=== PATIENT | male | born 1985 | race Caucasian/White ===

== ENCOUNTER 2017-05-25 09:48 | Emergency (ER) | payer OTHER ==
[2017-05-25 10:03] VITALS: BMI 29.6
[2017-05-25] MEDS ORDERED: SODIUM CHLORIDE 1,000 ML IV STA (10:09)
--- NOTE | 2017-05-25 10:12 | PDOC ---
History of Present Illness - General History Source: Patient Exam Limitations: No Limitations - History of Present Illness Initial Comments: 05/25/17 10:16 The patient is a 31 year old male with history of schizophrenia and bipolar disorder who arrives to the ED s/p syncopal episode while in his urologists office about 30 minutes prior to arrival. The patient states he was having a catheter placed and felt discomfort then lost consciousness. The patients mother states the patient was unconscious for a few minutes, but once he regained consciousness he had no post-ictal complaints. The patient is currently being seen by for his chronic left flank pain. The patient denies any recent illness, fever, chills, nausea, vomiting, diarrhea, chest pain, shortness of breath. Urologist: Lashell Cardona <Samara Birch - Last Filed: 05/25/17 10:25> - General History Source: Patient, Parent(s) Exam Limitations: No Limitations <Olivier Funez - Last Filed: 05/25/17 13:00> - General Chief Complaint: Syncope/Near Syncope Stated Complaint: Syncope/Near Syncope Time Seen by Provider: 05/25/17 09:54 Past History <Samara Birch - Last Filed: 05/25/17 10:25> - Psycho/Social/Smoking Cessation Hx Anxiety: No Suicidal Ideation: No Smoking History: Never smoked Have you smoked in the past 12 months: No Number of Cigarettes Smoked Daily: 1 Information on smoking cessation initiated: No Hx Alcohol Use: No Drug/Substance Use Hx: No Substance Use Type: None <Olivier Funez - Last Filed: 05/25/17 13:00> - Past Medical History Allergies/Adverse Reactions: Allergies Allergy/AdvReac Type Severity Reaction Status Date / Time No Known Allergies Allergy Verified 11/10/15 10:07 Home Medications: Ambulatory Orders NK [No Known Home Medication] 05/25/17 Review of Systems - Review of Systems Able to Perform ROS?: Yes Comments:: 05/25/17 10:17 GENERAL/CONSTITUTIONAL: No fever or chills. No weakness. HEAD, EYES, EARS, NOSE AND THROAT: No change in vision. No ear pain or discharge. No sore throat. CARDIOVASCULAR: No chest pain or shortness of breath. RESPIRATORY: No cough, wheezing, or hemoptysis. GASTROINTESTINAL: No nausea, vomiting, diarrhea or constipation. GENITOURINARY: Present: left flank pain No dysuria, frequency, or change in urination. MUSCULOSKELETAL: No joint or muscle swelling or pain. No neck or back pain. SKIN: No rash NEUROLOGIC: Present: syncope No headache, vertigo, or change in strength/sensation. ENDOCRINE: No increased thirst. No abnormal weight change. HEMATOLOGIC/LYMPHATIC: No anemia, easy bleeding, or history of blood clots. ALLERGIC/IMMUNOLOGIC: No hives or skin allergy. All Other Systems: Reviewed and Negative <Samara Birch - Last Filed: 05/25/17 10:25> *Physical Exam - Vital Signs Last Vital Signs Temp Pulse Resp BP Pulse Ox 98 F 57 L 18 119/78 100 05/25/17 10:01 05/25/17 10:05/25/17 10:05/25/17 10:01 05/25/17 10:01 - Physical Exam Comments: 05/25/17 10:24 GENERAL: Awake, alert, and fully oriented, in no acute distress HEAD: No signs of trauma EYES: PERRLA, EOMI, sclera anicteric, conjunctiva clear ENT: Auricles normal inspection, hearing grossly normal, nares patent, oropharynx clear without exudates. Moist mucosa NECK: Normal ROM, supple, no lymphadenopathy, JVD, or masses LUNGS: Breath sounds equal, clear to auscultation bilaterally. No wheezes, and no crackles HEART: Regular rate and rhythm, normal S1 and S2, no murmurs, rubs or gallops ABDOMEN: Left CVA and LLQ tenderness, Soft, normoactive bowel sounds. No guarding, no rebound. No masses EXTREMITIES: Normal range of motion, no edema. No clubbing or cyanosis. No cords, erythema, or tenderness NEUROLOGICAL: Cranial nerves II through XII grossly intact. Normal speech, normal gait SKIN: Warm, Dry, normal turgor, no rashes or lesions noted. <Samara Birch - Last Filed: 05/25/17 10:25> - Vital Signs Last Vital Signs Temp Pulse Resp BP Pulse Ox 98 F 57 L 18 119/78 100 05/25/17 10:01 05/25/17 10:05/25/17 10:05/25/17 10:01 05/25/17 10:01 <Olivier Funez - Last Filed: 05/25/17 13:00> Heart Score/ECG Review #1 ECG reviewed & interpreted by me at: 10:40 05/25/17 11:46 NSR 54, LVH, TWI III, no std/radha, normal axis, normal intervals, QTC 390 msec, no brugada, no HOCM, no WPW <Olivier Funez - Last Filed: 05/25/17 13:00> ED Treatment Course - LABORATORY CBC & Chemistry Diagram: 05/25/17 10:10 05/25/17 10:10 <Olivier Funez - Last Filed: 05/25/17 13:00> Medical Decision Making - Medical Decision Making 05/25/17 10:10 A portion of this note was documented by scribe services under my direction. I have reviewed the details of the note, within reason, and agree with the documentation with the following case summary and management plan written by me. Patient treated in the ED. Nursing notes are reviewed and incorporated into the medical decision-making. Vital signs reviewed. Peripheral IV access obtained by the nurse, laboratory studies are drawn and sent, reviewed and interpreted by myself. Vital Signs Temp Pulse Resp BP Pulse Ox 98 F 57 L 18 119/78 100 05/25/17 10:01 05/25/17 10:01 05/25/17 10:01 05/25/17 10:01 05/25/17 10:01 31-year-old male with past medical history of bipolar disorder and schizophrenia presents with syncope. The patient has chronic left flank pain and left lower quadrant pain for many years that is under outpatient evaluation. The patient is undergoing evaluation by Dr. Lashell Cardona. Stated at that time he was getting a Jimenez catheter insertion and he felt discomfort. Subsequently syncopized. Denies trauma. Patient was reportedly briefly unconscious but awoke spontaneously with no postictal confusion. Patient has no symptoms at this time other than his chronic left sided pain. Denies chest pain. I suspect the patient likely had a vasovagal syncope. We'll obtain an EKG, labs and give IV fluids. If the workup is unremarkable, patient to be discharged. The patient's abdominal discomfort that is chronic and be worked up as an outpatient. 05/25/17 12:43 CBC, BMP 05/25/17 10:10 05/25/17 10:10 CMP Sodium 138 mmol/L (136-145) 05/25/17 10:10 Potassium 4.3 mmol/L (3.5-5.1) 05/25/17 10:10 Chloride 103 mmol/L (98-107) 05/25/17 10:10 Carbon Dioxide 27 mmol/L (21-32) 05/25/17 10:10 Anion Gap 8 (8-16) 05/25/17 10:10 BUN 8 mg/dL (7-18) 05/25/17 10:10 Creatinine 0.8 mg/dL (0.7-1.3) 05/25/17 10:10 Creat Clearance w eGFR > 60 (>60) 05/25/17 10:10 Random Glucose 101 mg/dL (74-106) 05/25/17 10:10 Calcium 9.3 mg/dL (8.5-10.1) 05/25/17 10:10 Magnesium 2.1 mg/dL (1.8-2.4) 05/25/17 10:10 Total Bilirubin 1.1 mg/dL (0.2-1.0) H D 05/25/17 10:10 AST 18 U/L (15-37) D 05/25/17 10:10 ALT 36 U/L (12-78) 05/25/17 10:10 Alkaline Phosphatase 96 U/L (45-117) D 05/25/17 10:10 Creatine Kinase 64 IU/L (39-308) 05/25/17 10:10 Troponin I < 0.02 ng/ml (0.00-0.05) 05/25/17 10:10 Total Protein 6.9 g/dl (6.4-8.2) 05/25/17 10:10 Albumin 3.7 g/dl (3.4-5.0) 05/25/17 10:10 Urine Test Results Urine Color Red 05/25/17 10:10 Urine Appearance Cloudy 05/25/17 10:10 Urine pH 8.0 (5.0-8.0) D 05/25/17 10:10 Urine Protein Negative (NEGATIVE) 05/25/17 10:10 Urine Glucose (UA) Negative (NEGATIVE) 05/25/17 10:10 Urine Ketones Negative (NEGATIVE) 05/25/17 10:10 Urine Blood Negative (NEGATIVE) 05/25/17 10:10 Urine Nitrite Negative (NEGATIVE) 05/25/17 10:10 Urine Bilirubin Negative (NEGATIVE) 05/25/17 10:10 Ur Leukocyte Esterase Trace (NEGATIVE) 05/25/17 10:10 Urine RBC 2 /hpf (0-3) 05/25/17 10:10 Urine WBC 8 /hpf (3-5) 05/25/17 10:10 Ur Epithelial Cells Rare /hpf (FEW) 05/25/17 10:10 The patient was given IV fluids and reports feeling much better. The patient does have trace leukoesterase and 8 WBCs but the patient has no dysuria at this time. Patient reports that these symptoms are chronic and he has been on 3 separate antibiotics prior and does not want to be on antibiotics at this time. Given the circumstances, we'll hold off from antibiotics and allow the urine cultures to grow. We'll have the patient call back for the urine culture results. Patient has a follow-up with his urologist. We'll also give her referral to gastroenterology. Again, I suspect the patient likely has vasovagal syncope. Patient go home with his mother. I discussed the physical exam findings, ancillary test results and final diagnoses with the patient. I answered all of the patient's questions. The patient was satisfied with the care received and felt comfortable with the discharge plan and treatment plan. The patient will call their primary care physician within 24 hours to arrange follow-up and will return to the Emergency Department with any new, persistant or worsening symptoms. <Olivier Funez - Last Filed: 05/25/17 13:00> *DC/Admit/Observation/Transfer - Attestations Scribe Attestion: 05/25/17 10:26 Documentation prepared by Samara Birch, acting as medical record clerk for Olivier Funez MD. <Samara Birch - Last Filed: 05/25/17 10:25> - Discharge Dispostion Admit: No <Olivier Funez - Last Filed: 05/25/17 13:00> Diagnosis at time of Disposition: Vasovagal syncope - Discharge Dispostion Disposition: HOME Condition at time of disposition: Improved - Referrals Referrals: Jade Lake MD [Primary Care Provider] - Topher Bear MD [Staff Physician] - - Patient Instructions Printed Discharge Instructions: DI for Syncope in Adults (Fainting) Additional Instructions: Please drink plenty of fluids and rest. Please make an appointment with a isotope hydrologist and urologist. Call to schedule an appointment. This was likely vasovagal syncope.
[2017-05-25 10:48] LABS: BASOPHIL 0.3 % (0-2.0); EOSINOPHIL 1.8 % (0-4.5); MCH 28.4 pg (25.7-33.7); MCHC 33.7 g/dl (32.0-35.9); MEAN CELL VOLUME 84.2 fl (80-96); MEAN PLT VOLUME 10.1 fl (7.5-11.1); NEUTROPHILS 80.2 % (42.8-82.8); PLATELET COUNT 247 K/MM3 (134-434); RDW 14.7 % (11.9-15.9); WHITE BLOOD COUNT 13.4 K/mm3 (4.0-10.0)
[2017-05-25 11:18] LABS: ALBUMIN 3.7 g/dl (3.4-5.0); ANION GAP 8 (8-16); BILIRUBIN,TOTAL 1.1 mg/dL (0.2-1.0); CALCIUM 9.3 mg/dL (8.5-10.1); CO2 27 mmol/L (21-32); CREATININE 0.8 mg/dL (0.7-1.3); GLUCOSE,RANDOM 101 mg/dL (74-106); SGPT/ALT 36 U/L (12-78); TOT PROT 6.9 g/dl (6.4-8.2)
[2017-05-25 11:20] LABS: ALK PHOS 96 U/L (45-117); TROPONIN I < 0.02 ng/ml (0.00-0.05)
[2017-05-25 11:37] LABS: MAGNESIUM 2.1 mg/dL (1.8-2.4)
[2017-05-25 11:38] LABS: SGOT/AST 18 U/L (15-37)
[2017-05-25 11:50] LABS: URINE BILIRUBIN NEGATIVE (NEGATIVE); URINE BLOOD NEGATIVE (NEGATIVE); URINE GLUCOSE (UA) NEGATIVE (NEGATIVE); URINE KETONE NEGATIVE (NEGATIVE); URINE LEUK ESTERASE TRACE (NEGATIVE); URINE NITRITE NEGATIVE (NEGATIVE); URINE PROTEIN NEGATIVE (NEGATIVE); URINE UROBILINOGEN NEGATIVE mg/dL (0.2-1.0)
[2017-05-25 12:28] LABS: URINE RBC 2 /hpf (0-3); URINE WBC 8 /hpf (3-5)
--- NOTE | 2017-05-25 12:37 | EKG ---
Test Reason : Blood Pressure : / mmHG Vent. Rate : 054 BPM Atrial Rate : 054 BPM P-R Int : 122 ms QRS Dur : 090 ms QT Int : 412 ms P-R-T Axes : 017 020 018 degrees QTc Int : 390 ms SINUS BRADYCARDIA MINIMAL VOLTAGE CRITERIA FOR LVH, MAY BE NORMAL VARIANT BORDERLINE ECG BASELINE ARTIFACT WHEN COMPARED WITH ECG OF 14-MAY-2009 14:03, NO SIGNIFICANT CHANGE WAS FOUND CORELATE CLINICALLY. Confirmed by CHECO BARILLAS MD ([id number]) on 05/25/2017 12:37:14 PM Referred By: Confirmed By:CHECO BARILLAS MD
[2017-05-25 13:14] VITALS: BP 119/71; PULSE 81; TEMP 98
[2017-05-25 13:27] LABS: URINE APPEARANCE CLEAR; URINE COLOR YELLOW
== END 2017-05-25 13:14 | disposition home or self-care (01) ==
LOC: JER 09:48
PROC: 3E0337Z Introduction of Electrolytic and Water Balance Substance into Peripheral Vein, Percutaneous Approach (ICD-10-PCS; principal; 2017-05-25)
DX: R55 Syncope and collapse (principal); Y84.6 Urinary catheterization as the cause of abnormal reaction of the patient, or of later complication, without mention of misadventure at the time of the procedure; Y73.8 Miscellaneous gastroenterology and urology devices associated with adverse incidents, not elsewhere classified; F31.9 Bipolar disorder, unspecified; F20.9 Schizophrenia, unspecified
CPT/HCPCS: 36415; 80053; 81003; 81015; 82550; 83735; 84484; 85025; 87086; 93005; 93010; 96360; 99285-25

== ENCOUNTER 2018-07-26 15:31 | Emergency (ER) | payer OTHER ==
--- NOTE | 2018-07-26 15:46 | PDOC ---
Rapid Medical Evaluation Time Seen by Provider: 07/26/18 15:40 Medical Evaluation: Allergies Allergy/AdvReac Type Severity Reaction Status Date / Time No Known Allergies Allergy Verified 07/26/18 15:40 07/26/18 15:41 Pt presents to the ED for chest pain lasting one week. Also reports L arm pain and L leg pain. Nothing makes the pain better or worse, but he does report feeling more stressed than usual Pt requesting HIV testing at this time. Exam: RRR, CTAB Orders: Labs, EKG, CXR Pt to proceed to ED for further evaluation Discharge Disposition - Diagnosis Chest pain - Referrals - Patient Instructions - Post Discharge Activity
[2018-07-26 15:48] VITALS: BP 144/75; PULSE 65; TEMP 98; BMI 32.9
[2018-07-26 16:30] LABS: BASO % 0.3 % (0-2.0); HEMATOCRIT 47.5 % (35.4-49); HEMOGLOBIN 15.9 GM/dL (11.7-16.9); LYMPH % 18.1 % (8-40); MCH 28.6 pg (25.7-33.7); MCHC 33.4 g/dl (32.0-35.9); MEAN CELL VOLUME 85.8 fl (80-96); MEAN PLT VOLUME 10.3 fl (7.5-11.1); MONO % 7.4 % (3.8-10.2); NEUT % 72.2 % (42.8-82.8); PLATELET COUNT 294 K/MM3 (134-434); RBC 5.54 M/mm3 (4.00-5.60); RDW 13.4 % (11.9-15.9); WHITE BLOOD COUNT 11.2 K/mm3 (4.0-10.0)
--- NOTE | 2018-07-26 16:50 | PDOC ---
History of Present Illness - General Chief Complaint: Chest Pain Stated Complaint: PAIN LT ARM/LEG/CHEST PAIN Time Seen by Provider: 07/26/18 15:40 History Source: Patient - History of Present Illness Initial Comments: 07/26/18 16:42 Pt is a 32 yo m with PMH of bipolar presents to ED with complaints of L sided chest pain that radiates to the L shoulder, back and down the L arm x 1 week. Pt says the chest pain feels sharp, is intermittent. Pain in the arm feels like a tingling especially in the medial hand. He also has pain in his L leg that is intermittent x 1 week. Not associated with weakness. Pt says he has been "stressing a lot lately". He also complains of SOB which usually starts when he smokes which he did today, lightheadedness, occasional palpitations, and chronic L sided abdominal pain, and chills. He usually has L sided headache but is denying it at this time. He also denies n/v/d, fever, urinary frequency/ urgency/dysuria, cough, testicular pain, weakness. Grandmother had an IL in her 40's. No history of IL in parents/siblings. PCP: Dr. Funes PMH: bipolar PSH: none Meds: none Allergies: nkda Social: smokes 13 cigarettes/daily. Denies alcohol, marijuana, illicit drug use Past History - Past Medical History Allergies/Adverse Reactions: Allergies Allergy/AdvReac Type Severity Reaction Status Date / Time No Known Allergies Allergy Verified 07/26/18 15:40 Home Medications: Ambulatory Orders NK [No Known Home Medication] 05/25/17 COPD: No Psychiatric Problems: Yes (panic attacks, anxiety, schizophrenia,bipolar) - Suicide/Smoking/Psychosocial Hx Smoking History: Current every day smoker Have you smoked in the past 12 months: No Number of Cigarettes Smoked Daily: 13 Information on smoking cessation initiated: Yes 'Breaking Loose' booklet given: 07/26/18 Hx Alcohol Use: No Drug/Substance Use Hx: No Substance Use Type: None Review of Systems - Review of Systems Able to Perform ROS?: Yes Is the patient limited Ukrainian proficient: No Constitutional: Yes: Chills. No: Fever, Weakness HEENTM: No: Blurred Vision, Tearing, Recent change in vision, Ear Pain ( occasionally has blurry vision), Nose Congestion, Throat Pain Respiratory: Yes: Shortness of Breath. No: Cough, Wheezing, Hemoptysis Cardiac (ROS): Yes: See HPI, Chest Pain, Lightheadedness, Palpitations ( occasional palpitations). No: Irregular Heart Rate, Syncope ABD/GI: Yes: Abdominal cramping (L sided). No: Abdominal Distended, Blood Streaked Bowels, Constipated, Diarrhea, Nausea, Vomiting : No: Burning, Dysuria, Flank Pain, Hematuria, Incontinence, Pain, Urgency, Testicular Swelling, Testicular Pain Musculoskeletal: Yes: Back Pain (L upper back pain radiating from chest). No: Joint Pain, Joint Swelling, Muscle Pain, Muscle Weakness, Joint Stiffness Neurological: Yes: Numbness (Medial aspect of L hand), Tingling (L arm). No: Headache, Paresthesia, Tremors, Weakness, Dizziness Psychiatric: Yes: Anxiety, Other (No SI, HI or hallucinations). No: Depression *Physical Exam - Vital Signs Last Vital Signs Temp Pulse Resp BP Pulse Ox 98 F 65 18 144/75 99 07/26/18 15:40 07/26/18 15:40 07/26/18 15:40 07/26/18 15:40 07/26/18 15:40 - Physical Exam General Appearance: Yes: Nourished, Appropriately Dressed. No: Apparent Distress HEENT: positive: EOMI, LUCERO, Pharynx Normal, Hearing Grossly Normal. negative: Pale Conjunctivae, Scleral Icterus (R), Scleral Icterus (L), Tonsillar Exudate, Nasal Congestion, Rhinorrhea, Sinus Tenderness Neck: positive: Trachea midline, Supple. negative: Lymphadenopathy (R), Lymphadenopathy (L), Rigidity, Tender lateral, Tender midline Respiratory/Chest: positive: Lungs Clear, Normal Breath Sounds. negative: Chest Tender, Decreased Breath Sounds, Crackles, Rales, Rhonchi, Stridor, Wheezing Cardiovascular: positive: Regular Rhythm, Regular Rate, S1, S2. negative: Edema , JVD, Murmur Vascular Pulses: Carotid (R): 2+, Carotid (L): 2+, Dorsalis-Pedis (R): 2+, Doralis-Pedis (L): 2+ Gastrointestinal/Abdominal: positive: Normal Bowel Sounds, Soft, Tenderness ( LUQ tenderness). negative: Protuberent, Distended, Guarding, Rebound, Hernia, Mass Musculoskeletal: negative: CVA Tenderness, CVA Tenderness (R), CVA Tenderness (L ) Extremity: positive: Normal Capillary Refill. negative: Pedal Edema, Swelling, Calf Tenderness Integumentary: positive: Normal Color, Dry, Warm, Other (Scar on web of L thumb. Non tender, not erythematous). 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 negative: Numbness, Sensory Deficit Deep Tendon Reflexes: Ankle (L): 2+, Ankle (R): 2+, Knee (L): 2+, Knee (R): 2+ ED Treatment Course - LABORATORY CBC & Chemistry Diagram: 07/26/18 15:58 07/26/18 15:58 Medical Decision Making - Medical Decision Making 07/26/18 16:57 Pt is a 32 yo m with PMH of bipolar presents to ED with complaints of L sided chest pain that radiates to the L shoulder, back and down the L arm x 1 week. Pt says the chest pain feels sharp, is intermittent. Pain in the arm feels like a tingling especially in the medial hand. He also has pain in his L leg that is intermittent x 1 week. -Vitals: wnl - PE: LUQ tenderness. otherwise benign history of smoking, rule out IL. Other dx: PE, ptx, pna, msk. Trop, ekg, cxr ordered. CBC cmp ordered. Other diagnoses include anxiety, GERD, electrolyte abnormality Low suspicion for PE (age <50, no recent surgery, normal vital signs, no signs of dvt), low suspicion for pna (no cough, fevers), low susicion for ptx (normal breath sounds), low suspicion for spinal cord etiology (normal strength/ sensation, no recent trauma, normal neurological exam). EKG: nsr with sinus arrythmia. No NELLY or depressions, inverted T wave in III, and Q wave in III. Compared to EKG on 05/25/2017 no changes. CXR: negative for acute pathology 07/26/18 17:50 Pt refused Toradol. Went to vending machine, eating well. Not complaining of pain. Pt says he feels fine. HIV negative. UA negative. 07/26/18 18:12 Only acute symptoms pt was experiencing was the chest pain radiating to arm and pain in L leg. All other symptoms have been chronic. Labs wnl, no acute processes going on. Pt hemodynamically stable, tolerating po, ambulatory and has PCP follow up. Stable for dc home. Pt agrees with plan. Given strict return precautions. *DC/Admit/Observation/Transfer Diagnosis at time of Disposition: Atypical chest pain Chest pain Qualifiers: Chest pain type: unspecified Qualified Code(s): R07.9 - Chest pain, unspecified - Discharge Dispostion Disposition: HOME Condition at time of disposition: Stable Decision to Admit order: No - Referrals Referrals: Vy Funes MD [Primary Care Provider] - - Patient Instructions Printed Discharge Instructions: DI for Atypical Chest Pain, DI for Chest Pain Additional Instructions: You were seen here today because of chest pain. Labs, ekg and xray were all normal. Please make an appointment with Dr. Funes within the next week for further evaluation. Please come back to the ED if: your pain gets worse, you become short of breath , you feel dizzy, you start vomiting, or if any new concerning symptom develops. Thank you - Post Discharge Activity
--- NOTE | 2018-07-26 16:50 | PDOC ---
Attending Attestation - Resident Resident Name: Gillian Jorge - ED Attending Attestation I have performed the following: I have examined & evaluated the patient, The case was reviewed & discussed with the resident, I agree w/resident's findings & plan, Exceptions are as noted - HPI HPI: 07/26/18 17:54 32 yo male with c/o left sided chest pain with radiation to left arm . This has been occurring for one week - Physicial Exam PE: 07/26/18 17:56 alert and conversant 32 yo male in no acute distress, currently eating head ncat neck no bruits lungs no wheezing,no crackles cvs [id number] abd soft,nontender no cva tenderness ext there is a wound that is 3 cm area of erythema near the base of his left thumb-its recent but it is healing,no purulence(pt states he cut "something off " his skin) neuro axox3,ambulatory psych appropriate - Medical Decision Making 07/26/18 18:04 no family history of early cardiac demise -dose have risk factore of tobacco use 1/2 pack daily todays's ekg is unchanged since his prior ekg in May 2017 labs reviewed and is essentially unremarkable cxr no infiltrates,no ptx, no effusions, no masses, neg troponin imp atypical chest pain plan followup with Dr Funes
[2018-07-26] MEDS ORDERED: KETOROLAC TROMETHAMINE 15 MG/ML VIAL IVPUSH ONE (16:52)
[2018-07-26 17:07] LABS: ALBUMIN 4.1 g/dl (3.4-5.0); ALK PHOS 99 U/L (45-117); ANION GAP 7 MMOL/L (8-16); BILIRUBIN,TOTAL 0.6 mg/dL (0.2-1); BLOOD UREA NITROGEN 8 mg/dL (7-18); CALCIUM 9.2 mg/dL (8.5-10.1); CHLORIDE 107 mmol/L (98-107); CO2 25 mmol/L (21-32); CREATININE 0.8 mg/dL (0.55-1.3); GLUCOSE,RANDOM 100 mg/dL (74-106); POTASSIUM 4.3 mmol/L (3.5-5.1); SGOT/AST 23 U/L (15-37); SGPT/ALT 48 U/L (13-61); SODIUM 139 mmol/L (136-145); TOT PROT 7.4 g/dl (6.4-8.2)
[2018-07-26 17:24] LABS: INR 1.11 (0.83-1.09); PROTHROMBIN TIME (PATIENT) 12.5 SEC (9.7-13.0)
[2018-07-26 17:31] LABS: URINE APPEARANCE CLEAR; URINE BILIRUBIN NEGATIVE (<2.0 mg/dL); URINE COLOR YELLOW; URINE GLUCOSE (UA) NEGATIVE (NEGATIVE); URINE KETONE NEGATIVE (NEGATIVE); URINE NITRITE NEGATIVE (NEGATIVE); URINE PROTEIN NEGATIVE (NEGATIVE); URINE UROBILINOGEN 4.0 E.U/dl mg/dL (0.2-1.0)
[2018-07-26] MEDS ORDERED: KETOROLAC TROMETHAMINE 15 MG/ML VIAL ONE (17:45)
[2018-07-26 17:46] LABS: URINE LEUK ESTERASE 1+ (NEGATIVE)
[2018-07-26 17:57] LABS: URINE BACTERIA RARE /hpf (NONE SEEN); URINE MUCUS RARE
--- NOTE | 2018-07-27 11:42 | EKG ---
Test Reason : Blood Pressure : / mmHG Vent. Rate : 072 BPM Atrial Rate : 072 BPM P-R Int : 128 ms QRS Dur : 094 ms QT Int : 364 ms P-R-T Axes : 045 037 011 degrees QTc Int : 398 ms NORMAL SINUS RHYTHM WITH SINUS ARRHYTHMIA NORMAL ECG WHEN COMPARED WITH ECG OF 25-MAY-2017 10:37, NO SIGNIFICANT CHANGE WAS FOUND Confirmed by DIEGO WOOD MD ([id number]) on 07/27/2018 11:41:54 AM Referred By: Confirmed By:DIEGO WOOD MD
== END 2018-07-26 18:14 | disposition home or self-care (01) ==
LOC: JER 15:31
PROC: 3E0333Z Introduction of Anti-inflammatory into Peripheral Vein, Percutaneous Approach (ICD-10-PCS; principal; 2018-07-26)
DX: R07.9 Chest pain, unspecified (principal)
CPT/HCPCS: 36415; 71046-TC-FY; 80053; 81003; 81015; 82550; 84484; 85025; 85610; 87389; 93005; 93010; 96374; 99283-25

== ENCOUNTER 2018-07-29 17:23 | Emergency (ER) | payer OTHER ==
[2018-07-29 17:32] VITALS: BMI 26.6
[2018-07-29] MEDS ORDERED: ACETAMINOPHEN 500 MG TABLET (FP) PO ONE (17:32)
--- NOTE | 2018-07-29 17:32 | PDOC ---
Rapid Medical Evaluation Time Seen by Provider: 07/29/18 17:29 Medical Evaluation: Allergies Allergy/AdvReac Type Severity Reaction Status Date / Time No Known Allergies Allergy Verified 07/26/18 15:40 07/29/18 17:29 I have performed a brief in-person evaluation of the patient The patient presents with a chief complaint of: headache and chest pain intermittently x 2-3 weeks. Reports pain to back of head today , with no nausea, blurred vision or dizziness Pertinent physical exam findings are: NAD HEENt: PERRLA, EOMI even and unlabored breathing moving all limbs freely I have ordered the following: ekg, analgesia The patient will proceed to the ED for further evaluation.
--- NOTE | 2018-07-29 17:58 | PDOC ---
History of Present Illness - General Chief Complaint: Pain Stated Complaint: CHEST PAIN Time Seen by Provider: 07/29/18 17:29 - History of Present Illness Initial Comments: 32 year male with history of BPD, chronic intermittent left sided chest pain ( past 8 years), and left sided headache (the past two years) presenting with left sided headache and left sided chest pain intermittently since last night. Describes the headache as tingling and sharp pains from his left upper back wrapping around to the front of his head all on the left side. It's better with rest and worse with exertion. Describes the chest pain as left sided, radiating down to his finger tips with occasionally paresthesias, non exertional, non pleuritic and did not co-present with nausea, vomiting, diaphoresis, or SOB. He has had this exact same chest pain in the past but it is usually a 4-5/10, today it is an 8/10 but is not consistently there. 07/29/18 20:03 Past History - Past Medical History Allergies/Adverse Reactions: Allergies Allergy/AdvReac Type Severity Reaction Status Date / Time No Known Allergies Allergy Verified 07/29/18 17:29 Home Medications: Ambulatory Orders NK [No Known Home Medication] 05/25/17 COPD: No Psychiatric Problems: Yes (panic attacks, anxiety, schizophrenia,bipolar) - Suicide/Smoking/Psychosocial Hx Smoking History: Current every day smoker Have you smoked in the past 12 months: No Number of Cigarettes Smoked Daily: 13 Information on smoking cessation initiated: No 'Breaking Loose' booklet given: 07/26/18 Hx Alcohol Use: No Drug/Substance Use Hx: No Substance Use Type: None Review of Systems - Review of Systems Constitutional: No: Chills, Diaphoresis, Fever HEENTM: No: Eye Pain, Blurred Vision, Recent change in vision Respiratory: No: Cough, Orthopnea, Shortness of Breath, SOB with Exertion Cardiac (ROS): Yes: Chest Pain. No: Edema, Irregular Heart Rate ABD/GI: No: Diarrhea, Nausea, Vomiting : No: Burning, Dysuria, Pain Musculoskeletal: No: Muscle Weakness Integumentary: No: Erythema, Flushing, Lesions Neurological: Yes: Headache. No: Numbness, Paresthesia, Tingling, Tremors, Weakness Psychiatric: Yes: Depression Endocrine: No: Increased Thirst, Increased Urine Hematologic/Lymphatic: No: Anemia, Blood Clots, Easy Bleeding *Physical Exam - Vital Signs Last Vital Signs Temp Pulse Resp BP Pulse Ox 98.4 F 86 18 115/75 97 07/29/18 17:30 07/29/18 17:30 07/29/18 17:30 07/29/18 17:30 07/29/18 17:30 - Physical Exam General Appearance: Yes: Nourished, Appropriately Dressed. No: Apparent Distress HEENT: positive: EOMI, LUCERO, Normal ENT Inspection, Normal Voice Neck: positive: Trachea midline, Normal Thyroid, Supple. negative: Tender, Rigid Respiratory/Chest: positive: Lungs Clear, Normal Breath Sounds, Respiratory Distress. negative: Chest Tender, Accessory Muscle Use Cardiovascular: positive: Regular Rhythm, Regular Rate Gastrointestinal/Abdominal: positive: Normal Bowel Sounds, Flat, Soft. negative : Tender Lymphatic: negative: Adenopathy, Tenderness Musculoskeletal: positive: Normal Inspection. negative: Decreased Range of Motion Extremity: positive: Normal Capillary Refill, Normal Inspection, Normal Range of Motion. negative: Tender Integumentary: positive: Normal Color, Dry, Warm Neurologic: positive: rn office II-XII NML intact, Fully Oriented, Alert, Normal Mood/ Affect, Normal Response, Motor Strength 5/5 ED Treatment Course - LABORATORY CBC & Chemistry Diagram: 07/29/18 18:45 07/29/18 18:45 Medical Decision Making - Medical Decision Making 32 year old with chest pain and headache that are chronic and intermittent for the past few years. Labs WNL, troponins negative x2. CT negative. EKG demonstrating vent rate 82, WI 130, QRS 86, QTc 399, and axis normal. These are likely not Will DC with PCP follow up. 07/29/18 23:23 *DC/Admit/Observation/Transfer Diagnosis at time of Disposition: Chest pain Qualifiers: Chest pain type: unspecified Qualified Code(s): R07.9 - Chest pain, unspecified Headache Qualifiers: Headache type: unspecified Headache chronicity pattern: acute headache Intractability: not intractable Qualified Code(s): R51 - Headache - Discharge Dispostion Disposition: HOME Condition at time of disposition: Improved Decision to Admit order: No - Referrals Referrals: Vy Funes MD [Primary Care Provider] - - Patient Instructions Printed Discharge Instructions: DI for Atypical Chest Pain, DI for Headache Additional Instructions: Please use Tylenol and Motrin for your chest pain and headache. These medications are very safe and will help your pains. All of your tests included CXR, Head CT, EKG and labs were normal. Please follow with your PCP next week. Please follow up with your psychiatrist for control of your mood disorder. Please return to the ED if you have new or worsening symptoms. - Post Discharge Activity
[2018-07-29] MEDS ORDERED: ACETAMINOPHEN 325 MG TABLET (FP) ONE (18:09)
--- NOTE | 2018-07-29 18:39 | PDOC ---
Attending Attestation - HPI HPI: 07/29/18 18:49 The patient is a 32 year old male, with a significant past medical history of schizophrenia and bipolar disorder, who presents to the emergency department with, 3 weeks of intermittent headache and chest pain. He was recently worked up for similar symptoms 07/26 without any pertinent findings. Patient denies any recent LOC, trauma to the head, dizziness, photophobia, or phonophobia. Allergies: NKA Past surgical history: None reported. Social History: Smoker (13 cigarettes per day). Denies EtOH use and recreational drug use. Primary Care Physician: Dr. Funes Urologist: Dr. Lashell Cardona <Claribel Coyle - Last Filed: 07/29/18 18:49> - Resident Resident Name: Rodolfo Reid - ED Attending Attestation I have performed the following: I have examined & evaluated the patient, The case was reviewed & discussed with the resident, I agree w/resident's findings & plan, Exceptions are as noted - Physicial Exam PE: 07/29/18 19:48 Patient is awake and alert, well-appearing, in no distress PERRLA, EOMI Normocephalic and atraumatic CTA RRR Cranial nerves II through XII grossly intact; motor is 5 of 54; gait stable - Medical Decision Making 07/29/18 19:48 32-year-old male presents with atraumatic recurrent headache and atraumatic recurrent chest pain for the past 12-24 months. Patient is hemodynamically stable without focal neurological signs in the ED. EKG shows no evidence of acute ischemia. Patient is negative for PE by the Percocet rule. Will obtain serial troponins. Will rule out intracranial mass by CT (patient explained of limitation of CAT scan in diagnosing intracranial mass). Will reassess. Likely discharge <Diego Stanley - Last Filed: 07/29/18 19:49> Attestations - Attestations 07/29/18 18:49 Documentation prepared by Claribel Coyle, acting as medical data analyst for Diego Stanley MD. <Claribel Coyle - Last Filed: 07/29/18 18:49>
[2018-07-29 19:18] LABS: BASO % 0.5 % (0-2.0); EOS % 2.5 % (0-4.5); HEMATOCRIT 45.4 % (35.4-49); HEMOGLOBIN 15.3 GM/dL (11.7-16.9); LYMPH % 15.8 % (8-40); MCHC 33.7 g/dl (32.0-35.9); MEAN CELL VOLUME 86.2 fl (80-96); MEAN PLT VOLUME 10.2 fl (7.5-11.1); MONO % 6.8 % (3.8-10.2); NEUT % 74.4 % (42.8-82.8); PLATELET COUNT 293 K/MM3 (134-434); RBC 5.27 M/mm3 (4.00-5.60); RDW 13.2 % (11.9-15.9); WHITE BLOOD COUNT 10.2 K/mm3 (4.0-10.0)
[2018-07-29 19:44] LABS: ALK PHOS 101 U/L (45-117); ANION GAP 11 MMOL/L (8-16); BILIRUBIN,TOTAL 0.9 mg/dL (0.2-1); BLOOD UREA NITROGEN 9 mg/dL (7-18); CALCIUM 9.3 mg/dL (8.5-10.1); CHLORIDE 106 mmol/L (98-107); CO2 25 mmol/L (21-32); CREATININE 0.8 mg/dL (0.55-1.3); GLUCOSE,RANDOM 114 mg/dL (74-106); SGOT/AST 19 U/L (15-37); SGPT/ALT 52 U/L (13-61); SODIUM 142 mmol/L (136-145); TOT PROT 7.3 g/dl (6.4-8.2)
[2018-07-29] MEDS ORDERED: KETOROLAC TROMETHAMINE 15 MG/ML VIAL IVPUSH ONE (20:04)
[2018-07-29] MEDS ORDERED: KETOROLAC TROMETHAMINE 30 MG/1 ML VIAL IM ONE (20:16)
[2018-07-29] MEDS ORDERED: KETOROLAC TROMETHAMINE 30 MG/1 ML VIAL ONE (20:20)
[2018-07-29 23:49] VITALS: BP 110/59; PULSE 69; TEMP 98.1
--- NOTE | 2018-08-01 06:30 | EKG ---
Test Reason : Blood Pressure : / mmHG Vent. Rate : 082 BPM Atrial Rate : 082 BPM P-R Int : 130 ms QRS Dur : 086 ms QT Int : 342 ms P-R-T Axes : 043 050 004 degrees QTc Int : 399 ms NORMAL SINUS RHYTHM NORMAL ECG WHEN COMPARED WITH ECG OF 26-JUL-2018 15:38, NO SIGNIFICANT CHANGE WAS FOUND Confirmed by GRIFFIN GOLD MD ([id number]) on 08/01/2018 6:30:41 AM Referred By: Confirmed By:GRIFFIN GOLD MD
== END 2018-07-29 23:49 | disposition home or self-care (01) ==
LOC: JER 17:23
DX: R07.89 Other chest pain (principal); R51 Headache
CPT/HCPCS: 36415; 70450-TC; 71046-TC-FY; 80053; 84484; 85025; 93005; 93010; 99282-25

== ENCOUNTER 2018-08-03 16:54 | Emergency (ER) | payer OTHER ==
[2018-08-03] MEDS ORDERED: KETOROLAC TROMETHAMINE 60 MG/2 ML VIAL IM ONE (17:00)
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
[2018-08-03 17:17] VITALS: BP 147/73; PULSE 84; TEMP 98; BMI 33.3
[2018-08-03] MEDS ORDERED: IBUPROFEN 600 MG TABLET (FP) PO ONE (17:39)
[2018-08-03] MEDS ORDERED: ACETAMINOPHEN 1000 MG/100 ML VIAL (NON FORMULARY) IVPB ONE (17:40)
--- NOTE | 2018-08-03 17:50 | PDOC ---
History of Present Illness - General Chief Complaint: Chest Pain Stated Complaint: Chest Pain Time Seen by Provider: 08/03/18 16:57 History Source: Patient - History of Present Illness Initial Comments: 32 yo M w a hx of schizophrenia, bipolar disorder, syncope, here with vague left sided chest pain. This is the 3rd time in 2 weeks he has been here for the same complaint. The pain is sharp, on and off, and occasionally radiates down the left arm with a tingling sensation. The pain does not radiate to the jaw and is not associated with nausea or diaphoresis. It is not aggravated by exertion. He endorses pain upon deep inspiration. Denies recent fevers, chills, or infections. Denies SOB or difficulty breathing. Denies urinary or bowel complaints. PCP: Dr. Funes PMH: bipolar, schizo. PSH: none Meds: none Allergies: nkda Social: smokes 13 cigarettes/daily. Denies alcohol, marijuana, illicit drug use Past History - Past Medical History Allergies/Adverse Reactions: Allergies Allergy/AdvReac Type Severity Reaction Status Date / Time No Known Allergies Allergy Verified 08/03/18 17:17 Home Medications: Ambulatory Orders NK [No Known Home Medication] 05/25/17 CVA: No COPD: No Psychiatric Problems: Yes (panic attacks, anxiety, schizophrenia,bipolar) - Suicide/Smoking/Psychosocial Hx Smoking History: Never smoked Have you smoked in the past 12 months: No Number of Cigarettes Smoked Daily: 13 Information on smoking cessation initiated: No 'Breaking Loose' booklet given: 07/26/18 Hx Alcohol Use: No Drug/Substance Use Hx: No Substance Use Type: None Review of Systems - Review of Systems Constitutional: No: Chills, Diaphoresis, Fever HEENTM: No: Eye Pain, Blurred Vision, Double Vision, Throat Pain Respiratory: No: Cough, Shortness of Breath, SOB with Exertion, SOB at Rest, Stridor, Wheezing, Hemoptysis Cardiac (ROS): Yes: Chest Pain. No: Edema, Irregular Heart Rate, Lightheadedness, Palpitations, Syncope, Chest Tightness ABD/GI: No: Abdominal Distended, Constipated, Diarrhea, Nausea, Vomiting : No: Burning, Dysuria, Frequency, Flank Pain Musculoskeletal: No: Back Pain, Joint Pain, Muscle Pain, Neck Pain, Joint Stiffness Integumentary: No: Bruising, Change in Color, Dryness, Erythema Neurological: Yes: Paresthesia, Tingling. No: Headache, Numbness, Tremors, Weakness, Unsteady Gait, Ataxia, Dizziness Psychiatric: Yes: Anxiety, Depression, Mood Swings. No: Frequent Crying, Stressors, Sleep Pattern Change Endocrine: No: Excessive Sweating, Flushing, Intolerance to Cold Hematologic/Lymphatic: No: Anemia, Blood Clots, Easy Bleeding *Physical Exam - Vital Signs Last Vital Signs Temp Pulse Resp BP Pulse Ox 98 F 84 16 147/73 100 08/03/18 17:14 08/03/18 17:14 08/03/18 17:14 08/03/18 17:14 08/03/18 17:14 - Physical Exam General Appearance: Yes: Nourished, Appropriately Dressed. No: Apparent Distress, Disheveled HEENT: positive: EOMI, LUCERO, Normal ENT Inspection, Normal Voice Neck: positive: Trachea midline, Supple. negative: Tender, Lymphadenopathy (R) , Lymphadenopathy (L), Tender lateral, Tender midline Respiratory/Chest: positive: Lungs Clear, Normal Breath Sounds. negative: Chest Tender, Respiratory Distress, Accessory Muscle Use, Decreased Breath Sounds Cardiovascular: positive: Regular Rhythm, Regular Rate, S1, S2. negative: Edema , JVD, Murmur, Bradycardia, Tachycardia Vascular Pulses: Dorsalis-Pedis (R): 2+, Doralis-Pedis (L): 2+ Gastrointestinal/Abdominal: positive: Normal Bowel Sounds, Soft. negative: Organomegaly, Distended, Guarding, Rebound, Tenderness Lymphatic: negative: Adenopathy Musculoskeletal: positive: Normal Inspection. negative: CVA Tenderness Extremity: positive: Normal Capillary Refill, Normal Inspection, Normal Range of Motion. negative: Coldness, Cyanosis Integumentary: positive: Normal Color, Dry, Warm. negative: Cyanotic, Erythema , Jaundice Neurologic: positive: associate professor of biology II-XII NML intact, Fully Oriented, Alert, Normal Mood/ Affect, Normal Response, Motor Strength 5/5. negative: Abnormal Cranial NS ED Treatment Course - RADIOLOGY Radiology Studies Ordered: Category Date Time Status CHEST PA & LAT [RAD] Stat Radiology 08/03/18 17:39 Ordered Medical Decision Making - Medical Decision Making 32 yo M w a hx of schizophrenia, bipolar disorder, syncope, here with vague left sided chest pain. Highest on DD includes but isn't limited to: ACS, pneumothorax, costochondritis , PE. Plan: Ekg, labs, tropx2, cxr, dimer, analgesia, re-assess. Signing out patient to night team. *DC/Admit/Observation/Transfer Diagnosis at time of Disposition: Costochondritis - Discharge Dispostion Disposition: HOME Condition at time of disposition: Stable Decision to Admit order: No - Referrals Referrals: Vy Funes MD [Primary Care Provider] - - Patient Instructions Printed Discharge Instructions: DI for Atypical Chest Pain, DI for Costochondritis Additional Instructions: You came into the ER with chest pain. We did some tests including an EKG, bloodwork, and an X-ray and determined your pain is likely due to costocondritis - please see attached packet for explanation. We ruled out that you are likely not experiencing a heart attack, don't have a pneumothorax, and don't have a blood clot in your lungs. Please take motrin or tylenol as needed for pain. It is very important that you schedule a follow up appointment with your primary care doctor in the next 3-5 days to make sure your pain is being handled and you are getting better. Please come back to the ER if your pain worsens, or you have any other new or worsening pain or concerns. Thank you for coming into the [facility] ER. We hope you feel better soon! Print Language: AMERICAN - Post Discharge Activity
--- NOTE | 2018-08-03 18:04 | PDOC ---
Attending Attestation - [facility] HPI: 08/03/18 18:56 The patient is a 32 year old male, with a significant past medical history of schizophrenia, bipolar disorder, syncope, who presents to the ED complaining of atypical left sided chest pain. He notes that the pain is worse on the left side and radiates down his left arm to his fingers. He notes that he has had this pain for the past few years but has worsened over the last few weeks. He reports that this is the 3rd time in the last few weeks that he has been to the ED for the same complaint. The patient denies shortness of breath, headache and dizziness. Denies fever, chills, nausea, vomiting, diarrhea or constipation. Denies dysuria, frequency, urgency and hematuria. Allergies: None Past surgical history: None reported Social History: smokes 13 cigarettes/daily. Denies alcohol, marijuana, illicit drug use - Physicial Exam PE: 08/03/18 18:56 Constitutional: Awake, alert, oriented. No acute distress. Head: Normocephalic. Atraumatic Eyes: PERRL. EOMI. Conjunctivae are not pale. ENT: Mucous membranes are moist and intact. Posterior pharynx without exudates or erythema. Uvula midline. Neck: Supple. Full ROM. No lymphadenopathy. Cardiovascular: Regular rate. Regular rhythm. S1, S2 regular. Distal pulses are 2+ and symmetric. Pulmonary/Chest: (+) Left chest wall anterior tenderness to plapation. No evidence of respiratory distress. Clear to auscultation bilaterally No wheezing, rales or rhonchi. Abdominal: Soft and non-distended. There is no tenderness. No rebound, guarding or rigidity. No organomegaly. No palpable masses. Good bowel sounds. Back: No CVA tenderness. Musculoskeletal: No edema. No cyanosis. No clubbing. Full range of motion in all extremities. Nocalf tenderness. Radial/pedal pulses are intact and 2+ bilaterally Skin: Skin is warm and dry. No petechiae. No purpura. Neurological: Alert and oriented to person, place, and time. Cranial nerves II -XII are grossly intact. Normal speech. Strength is grossly symmetric. No sensory deficits. Psychiatric: Good eye contact. Normal interaction, affect and behavior. <Robert Jennings - Last Filed: 08/03/18 18:56> - Resident Resident Name: Kenji Vides - ED Attending Attestation I have performed the following: I have examined & evaluated the patient, The case was reviewed & discussed with the resident, I agree w/resident's findings & plan, Exceptions are as noted - Medical Decision Making 08/03/18 18:03 I, Dr. Angie Mac, DO, attest that this document has been prepared under my direction and personally reviewed by me in its entirety. I further attest, that it accurately reflects all work, treatment, procedures and medical decision -making performed by me. 08/03/18 18:46 a/p: 32yo male with anterior chest wall pain -does worsen with deep breath -PERC negative -3rd visit to ED in last week -trops have been negative -pt does smoke -will send labs, trop, dimer, ekg -has had 2 cxr this week. will hold off -no trauma, no rashes -atypical cp with reproducible anterior chest wall pain 08/03/18 21:50 dimer negative labs stable pending trop 08/03/18 22:00 trop is negative 08/03/18 22:02 discussed labs with the patient states he hasn't followed up with inocencia alfred in over a year and a half will also give cards follow up answered all questions <Angie Mac - Last Filed: 08/03/18 22:06> Discharge Disposition - Discharge Dispostion Decision to Admit order: No <Angie Mac - Last Filed: 08/03/18 22:06> - Diagnosis Atypical chest pain - Discharge Dispostion Disposition: HOME Condition at time of disposition: Stable - Referrals Referrals: Vy Alfred MD [Primary Care Provider] - Giuseppe Hawthorne MD [Staff Physician] - - Patient Instructions Printed Discharge Instructions: DI for Atypical Chest Pain Additional Instructions: You came into the ER with chest pain. We did some tests including an EKG, and bloodwork. Please see attached packet for explanation. We ruled out that you are likely not experiencing a heart attack, don't have a pneumothorax, and don' t have a blood clot in your lungs. Please take motrin or tylenol as needed for pain. It is very important that you schedule a follow up appointment with your primary care doctor in the next 3-5 days to make sure your pain is being handled and you are getting better. Please come back to the ER if your pain worsens, or you have any other new or worsening pain or concerns. Thank you for coming into the [facility] ER. We hope you feel better soon! Print Language: WELSH - Post Discharge Activity Heart Score/ECG Review - ECG Intrepretation Comment:: 08/03/18 18:03 sinus at 62, nl axis, nl interval, no acute st/t wave findings <Angie Mac - Last Filed: 08/03/18 22:06>
[2018-08-03] MEDS ORDERED: KETOROLAC TROMETHAMINE 30 MG/1 ML VIAL ONE (18:16)
[2018-08-03] MEDS ORDERED: KETOROLAC TROMETHAMINE 30 MG/1 ML VIAL IVPUSH ONE (18:43)
[2018-08-03 19:00] LABS: BASO % 0.5 % (0-2.0); EOS % 3.4 % (0-4.5); HEMATOCRIT 44.9 % (35.4-49); HEMOGLOBIN 15.3 GM/dL (11.7-16.9); LYMPH % 19.3 % (8-40); MCH 29.1 pg (25.7-33.7); MEAN CELL VOLUME 85.6 fl (80-96); MEAN PLT VOLUME 9.9 fl (7.5-11.1); MONO % 5.9 % (3.8-10.2); NEUT % 70.9 % (42.8-82.8); PLATELET COUNT 282 K/MM3 (134-434); RBC 5.24 M/mm3 (4.00-5.60); RDW 13.5 % (11.9-15.9); WHITE BLOOD COUNT 10.6 K/mm3 (4.0-10.0)
--- NOTE | 2018-08-03 19:15 | PDOC ---
*Physical Exam - Vital Signs Last Vital Signs Temp Pulse Resp BP Pulse Ox 98 F 84 16 147/73 100 08/03/18 17:14 08/03/18 17:14 08/03/18 17:14 08/03/18 17:14 08/03/18 17:14 - Physical Exam Comments: 08/03/18 19:12 General Appearance: Yes: Nourished, Appropriately Dressed. No: Apparent Distress, Disheveled HEENT: positive: EOMI, LUCERO, Normal ENT Inspection, Normal Voice Neck: positive: Trachea midline, Supple. negative: Tender, Lymphadenopathy (R) , Lymphadenopathy (L), Tender lateral, Tender midline Respiratory/Chest: positive: Lungs Clear, Normal Breath Sounds. negative: Chest Tender, Respiratory Distress, Accessory Muscle Use, Decreased Breath Sounds Cardiovascular: positive: Regular Rhythm, Regular Rate, S1, S2. negative: Edema , JVD, Murmur, Bradycardia, Tachycardia Vascular Pulses: Dorsalis-Pedis (R): 2+, Doralis-Pedis (L): 2+ Gastrointestinal/Abdominal: positive: Normal Bowel Sounds, Soft. negative: Organomegaly, Distended, Guarding, Rebound, Tenderness Lymphatic: negative: Adenopathy Musculoskeletal: positive: Normal Inspection. negative: CVA Tenderness Extremity: positive: Normal Capillary Refill, Normal Inspection, Normal Range of Motion. negative: Coldness, Cyanosis Integumentary: positive: Normal Color, Dry, Warm. 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 negative: Abnormal Cranial NS ED Treatment Course - LABORATORY CBC & Chemistry Diagram: 08/03/18 18:40 08/03/18 18:40 - ADDITIONAL ORDERS Additional order review: 08/03/18 18:40 RBC 5.24 MCV 85.6 MCHC 34.0 RDW 13.5 MPV 9.9 Neutrophils % 70.9 Lymphocytes % 19.3 D Monocytes % 5.9 Eosinophils % 3.4 Basophils % 0.5 - Medications Given in the ED: ED Medications Discontinued Medications Generic Name Dose Route Start Last Admin Trade Name Freq PRN Reason Stop Dose Admin Ketorolac Tromethamine 60 mg 08/03/18 17:00 08/03/18 18:48 Toradol Injection - IM 08/03/18 17:01 Not Given ONCE ONE Ketorolac Tromethamine 30 mg 08/03/18 18:43 08/03/18 18:30 Toradol Injection - IVPUSH 08/03/18 18:44 30 mg ONCE ONE Administration Medical Decision Making - Medical Decision Making 08/03/18 19:13 received sign out from Dr. Baker Pt reassessed. lying comfortable in stretcher w/o complaint. CP is better received pain meds will f/u on trop and d-dimer 08/03/18 22:10 labs unremarkable trop and d-dimer neg pt stable and ready for discharge *DC/Admit/Observation/Transfer Diagnosis at time of Disposition: Atypical chest pain - Discharge Dispostion Disposition: HOME Condition at time of disposition: Stable - Referrals Referrals: Giuseppe Hawthorne MD [Staff Physician] - Vy Funes MD [Primary Care Provider] - - Patient Instructions Printed Discharge Instructions: DI for Atypical Chest Pain Additional Instructions: You came into the ER with chest pain. We did some tests including an EKG, and bloodwork. Please see attached packet for explanation. We ruled out that you are likely not experiencing a heart attack, don't have a pneumothorax, and don' t have a blood clot in your lungs. Please take motrin or tylenol as needed for pain. It is very important that you schedule a follow up appointment with your primary care doctor in the next 3-5 days to make sure your pain is being handled and you are getting better. Please come back to the ER if your pain worsens, or you have any other new or worsening pain or concerns. Thank you for coming into the [facility] ER. We hope you feel better soon! Print Language: EQUATORIAL GUINEAN - Post Discharge Activity
[2018-08-03 20:40] LABS: ALBUMIN 3.8 g/dl (3.4-5.0); ALK PHOS 97 U/L (45-117); ANION GAP 4 MMOL/L (8-16); BILIRUBIN,TOTAL 0.7 mg/dL (0.2-1); BLOOD UREA NITROGEN 7 mg/dL (7-18); CALCIUM 8.9 mg/dL (8.5-10.1); CHLORIDE 108 mmol/L (98-107); CO2 25 mmol/L (21-32); CREATININE 0.7 mg/dL (0.55-1.3); GLUCOSE,RANDOM 110 mg/dL (74-106); SGOT/AST 14 U/L (15-37); SGPT/ALT 40 U/L (13-61); SODIUM 137 mmol/L (136-145); TOT PROT 6.9 g/dl (6.4-8.2)
[2018-08-03] MEDS ORDERED: ACETAMINOPHEN 325 MG TABLET (FP) ONE (22:01)
[2018-08-03] MEDS ORDERED: ACETAMINOPHEN 325 MG TABLET (FP) PO ONE (22:04)
--- NOTE | 2018-08-04 22:03 | EKG ---
Test Reason : Blood Pressure : / mmHG Vent. Rate : 062 BPM Atrial Rate : 062 BPM P-R Int : 126 ms QRS Dur : 094 ms QT Int : 372 ms P-R-T Axes : 023 030 012 degrees QTc Int : 377 ms NORMAL SINUS RHYTHM NORMAL ECG WHEN COMPARED WITH ECG OF 29-JUL-2018 17:37, NO SIGNIFICANT CHANGE WAS FOUND Confirmed by JEN KIRBY MD ([id number]) on 08/04/2018 10:03:04 PM Referred By: Confirmed By:JEN KIRBY MD
== END 2018-08-03 22:09 | disposition home or self-care (01) ==
LOC: JER 16:54
PROC: 3E0333Z Introduction of Anti-inflammatory into Peripheral Vein, Percutaneous Approach (ICD-10-PCS; principal; 2018-08-03)
DX: M94.0 Chondrocostal junction syndrome [Tietze] (principal)
CPT/HCPCS: 36415; 80053; 82550; 84484; 85025; 85379; 87040; 93005; 93010; 99282-25

== ENCOUNTER 2019-03-31 20:51 | Emergency (ER) | payer OTHER | END 2019-03-31 21:40 | disposition left against medical advice (07) | LOC: JER 20:51 ==